=== PATIENT | female | born 1935 | race Caucasian/White ===

== ENCOUNTER → 2017-06-03 | Outpatient (CLI) | payer MEDICARE, OTHER ==
--- NOTE | 2017-06-03 14:45 | RADIOLOGY REPORT (SQ) ---
EXAM DESCRIPTION: VENOUS BILATERAL LOWER COMPLETED DATE/TIME: 06/03/2017 2:32 pm REASON FOR STUDY: EDEMA R60.9 EDEMA, UNSPECIFIED M62.81 MUSCLE WEAKNESS (GENERALIZED) COMPARISON: None. TECHNIQUE: Dynamic and static potter scale and color images acquired of both lower extremity venous sy stems. Selected spectral images acquired with additional compression and augmentation maneuvers. Imag es stored on PACS. LIMITATIONS: None. FINDINGS: RIGHT LEG COMMON FEMORAL AND FEMORAL: Normal phasicity, compression and augmentation. No visualized echogenic m aterial on potter scale. No defects on color images. POPLITEAL: Normal compression and augmentation. No visualized echogenic material on potter scale. No de fects on color images. CALF VESSELS: Normal compression and augmentation. No visualized echogenic material on potter scale. No defects on color image. GSV AND SSV: Normal compression. No visualized echogenic material on potter scale. No defects on color images. ANY DEEP VENOUS INSUFFICIENCY: Not evaluated. ANY EVIDENCE OF POPLITEAL CYST: No. OTHER: No other significant finding. LEFT LEG COMMON FEMORAL AND FEMORAL: Normal phasicity, compression and augmentation. No visualized echogenic m aterial on potter scale. No defects on color images. POPLITEAL: Normal compression and augmentation. No visualized echogenic material on potter scale. No de fects on color images. CALF VESSELS: Normal compression and augmentation. No visualized echogenic material on potter scale. No defects on color images. GSV AND SSV: Normal compression. No visualized echogenic material on potter scale. No defects on color images. ANY DEEP VENOUS INSUFFICIENCY: Not evaluated. ANY EVIDENCE POPLITEAL CYST: No. OTHER: No other significant finding. IMPRESSION: NO EVIDENCE DVT OR SVT IN EITHER LEG. TECHNICAL DOCUMENTATION: JOB ID: [id number] [employer]- All Rights Reserved
--- NOTE | 2017-06-04 17:13 | XCELERA REPORT ---
[address] [address] Lower Extremity Arterial Evaluation Name: MARIYA DIEHL Age: 81 yrs Gender: Female : 1935 Patient Status: Outpatient Patient Location: Study Date: 06/03/2017 01:39 PM Procedure: A color flow and duplex scan of the lower extremity arteries was performed bilaterally with velocity and waveform anaylsis. Ankle brachial indicies performed. Reason For Study: EDEMA Ordering Physician: CHAU SERRANO Performed By: Cony Nassar Measurements and Calculations Right Left STARS ANALYTICAL LEAD PSV 80.0 67.0 cm/sec Prox PFA PSV -53.1 56.2 cm/sec Prox SFA PSV 80.8 91.8 cm/sec Mid SFA PSV -73.3 -82.5 cm/sec Dist SFA PSV -54.7 -52.4 cm/sec Prox Pop A PSV 53.7 42.9 cm/sec Dist KIMBERLEY PSV 104.6 69.5 cm/sec Dist BLEACH RANGE OPERATOR PSV 96.7 63.2 cm/sec Valente Pedis PSV 113.4 96.7 cm/sec Right Side Arterial Evaluation Normal velocity and triphasic waveforms noted from the Common Femoral artery to the infregeniculate vessels. 0 % stenosis noted. Ankle Brachial index is 1.2. Left Side Arterial Evaluation Normal velocity and triphasic waveforms noted from the Common Femoral artery to the infregeniculate vessels. 0 % stenosis noted. Ankle Brachial index is 1.2. Interpretation Summary No hemodynamically significant lesions in the bilateral lower extremities, on duplex imaging, at rest. : CHAU SERRANO > Jaquan Bhatti
== END ==
LOC: SP 12:52
PROVIDERS: ATTEND Student in an Organized Health Care Education/Training Program
DX: R60.9 Edema, unspecified (principal); M62.81 Muscle weakness (generalized)
CPT/HCPCS: 93925; 93970

== ENCOUNTER → 2018-02-10 | Outpatient (CLI) | payer MEDICARE, OTHER ==
[2018-02-10 15:50] LABS: ABSOLUTE EOSINOPHILS # (AUTO) 0.1 10^3/uL (0.0-0.6); ABSOLUTE LYMPHOCYTES (AUTO) 1.3 10^3/uL (0.5-4.7); ABSOLUTE MONOCYTES (AUTO) 0.5 10^3/uL (0.1-1.4); ABSOLUTE NEUT (AUTO) 3.1 10^3/uL (1.7-8.2); BASOPHILS % (AUTO) 0.8 % (0-2); EOSINOPHILS % (AUTO) 1.7 % (0-6); HEMATOCRIT 41.6 % (36.0-47.0); HEMOGLOBIN 14.3 g/dL (12.0-15.5); LYMPHOCYTES % (AUTO) 26.3 % (13-45); MEAN CORPUSCULAR HEMOGLOBIN 33.5 pg (27.0-33.4); MEAN CORPUSCULAR HGB CONC 34.3 g/dL (32.0-36.0); MEAN CORPUSCULAR VOLUME 98 fl (80-97); MONOCYTES % (AUTO) 10.5 % (3-13); PLATELET COUNT 329 10^3/uL (150-450); RED BLOOD COUNT 4.26 10^6/uL (3.72-5.28); RED CELL DISTRIBUTION WIDTH 13.3 % (11.5-14.0); SEGMENTED NEUTROPHILS % (AUTO) 60.7 % (42-78); TOTAL CELLS COUNTED % (AUTO) 100 %; WHITE BLOOD COUNT 5.1 10^3/uL (4.0-10.5)
[2018-02-10 16:37] LABS: ERYTHROCYTE SEDIMENTATION RATE 9 mm/hr (0-30)
== END ==
LOC: OD 14:50
PROVIDERS: ATTEND Ophthalmology
DX: H53.121 Transient visual loss, right eye (principal)
CPT/HCPCS: 36415; 85025; 85652; 86140